=== PATIENT | female | born 1995 | race African-American/Black ===

== ENCOUNTER 2018-05-08 12:51 | Emergency (ER) | payer OTHER ==
[~2018-05-08] VITALS: Ht 162.6 cm; Wt 58.0 kg
[2018-05-08] MEDS ORDERED: METHOCARBAMOL 500MG TABLET PO ONE (13:30)
[2018-05-08] MEDS ORDERED: IBUPROFEN 600MG TABLET PO ONE (13:30)
[2018-05-08 14:00] VITALS: BP 111/77
== END 2018-05-08 18:54 | disposition home or self-care (01) ==
LOC: ER 12:51
DX: S16.1XXA Strain of muscle, fascia and tendon at neck level, initial encounter (principal); V49.88XA Car occupant (driver) (passenger) injured in other specified transport accidents, initial encounter; Y93.89 Activity, other specified; Y92.89 Other specified places as the place of occurrence of the external cause; Y99.8 Other external cause status
CPT/HCPCS: 99283